=== PATIENT | male | born 1970 | race Caucasian/White ===

== ENCOUNTER → 2018-07-24 11:39 | Outpatient (CLI) | payer SELFPAY ==
--- NOTE | 2018-07-24 11:43 | RAD_ITS ---
STUDY: X-RAY CHEST REASON FOR EXAM: Male, 48 years old. Cough and congestion. TECHNIQUE: Front frontal and lateral projections of the chest. COMPARISON: Frontal projection of the chest as part of a rib series dated November 19, 2016. FINDINGS: There is a new, prominent region of alveolar opacification with the in within the left infrahilar location involving the superior segment left lower lobe. There is no associated effusion. There is no pneumothorax. Normal size heart. Normal mediastinum and gutierrez. Normal visualized pulmonary arteries. Normal visualized aortic arch and descending thoracic aorta. There is no evident acute osseous abnormality. There is no demonstrated abnormality of the visualized soft tissue structures of the upper abdomen. RAD/Chest PA and Lateral IMPRESSION: Superior segment left lower lobe consolidation probably representing pneumonia. There is no evident parapneumonic effusion. No pneumothorax. Stable and unremarkable appearing cardiomediastinal silhouette. Recommendation: I recommend radiographic follow-up until complete clearing to exclude underlying pathology to include neoplasm. Electronically Signed: Samson Pinto MD at 12:24 EDT , Service support ,
== END ==
PROVIDERS: Referring Provider Physician Assistant; Visit Provider Physician Assistant
DX: R05 Cough (principal)
CPT/HCPCS: 71046

== ENCOUNTER 2018-07-31 18:42 | Observation (INO) | payer OTHER, SELFPAY ==
[2018-07-31 18:43] VITALS: BP 111/88; PULSE 127; RESP 18; TEMP 36.6; O2SAT 93; BMI 26.4
--- NOTE | 2018-07-31 19:53 | US_ITS ---
STUDY: VENOUS DOPPLER ULTRASOUND - LEFT LOWER EXTREMITY REASON FOR EXAM: Male, 48 years old. Palpable cord in leg. TECHNIQUE: Ultrasound evaluation of the deep vein system to include renteria-scale imaging and compression was performed. Renteria-scale imaging and Doppler sonographic evaluation, including duplex spectral analysis and qualitative color flow sonography, was performed. COMPARISON: None. FINDINGS: Common Femoral Vein: Normal compression, spontaneity and augmentation. Normal color Doppler. Common Femoral Vein/Greater Saphenous Junction: Normal compression, spontaneity and augmentation. Normal color Doppler. Femoral Proximal: Normal compression, spontaneity and augmentation. Normal color Doppler. Femoral Middle: Normal compression, spontaneity and augmentation. Normal color Doppler. Femoral Distal: Normal compression, spontaneity and augmentation. Normal color Doppler. Popliteal Vein: Normal compression, spontaneity and augmentation. Normal color Doppler. Posterior Tibial Vein: Normal compression, spontaneity and augmentation. Normal color Doppler. Peroneal Vein: Normal compression, spontaneity and augmentation. Normal color Doppler. There is occlusive clot in the left greater saphenous vein extending from the mid thigh to the upper calf. US/Venous Duplex Imag/Limited/Uni IMPRESSION: Occlusive superficial thrombus in the left greater saphenous vein extending from the mid thigh to the upper calf. No evidence of deep venous thrombosis in the left lower extremity. Electronically Signed: Phil Anne Marie, at 20:54 EDT Tel , Service support ,
[2018-07-31 20:57] VITALS: RESP 16
--- NOTE | 2018-07-31 21:37 | CT_ITS ---
STUDY: CTA CHEST REASON FOR EXAM: Male, 48 years old. Superficial thrombus on venous Doppler October. Shortness of breath. Cough. RADIATION DOSAGE (If Supplied By Facility): CTDIvol = ( 12.82 ) mGy, DLP = ( 443.04 ) mGycm TECHNIQUE: The examination was performed with the intravenous administration of 75ml IV Isovue 370. Post-processing of the angiographic images was performed, with multiplanar reformation and 3D reconstruction. Individualized dose optimization techniques were used for this CT. COMPARISON: None. FINDINGS: There is consolidation within the left lower lobe. There is a subpleural 6.3 mm nodule within the right lower lobe. Normal enhancement of the main pulmonary artery and right and left pulmonary arteries. Normal enhancement of the bilateral peripheral pulmonary arteries. There is no demonstrated pulmonary embolism. Normal thoracic aorta and visualized great vessels. There is no demonstrated aortic dissection. There are calcifications of the coronary arteries. Normal mediastinum. Normal hilar regions. Normal visualized trachea and bronchi. Normal osseous structures. The limited images of the upper abdomen demonstrate too small to characterize scattered low-attenuation foci throughout the liver which may reflect underlying hemangiomas and/or cysts. CT/CTA Chest W/WO Contrast IMPRESSION: No demonstrated pulmonary embolism or arterial dissection. Left lower lobe pneumonia. Electronically Signed: Nydia Nj MD at 23:12 EDT Tel , Service support ,
--- NOTE | 2018-07-31 21:37 | EKG12_ITS ---
Test Reason : SOB Blood Pressure : / mmHG Vent. Rate : 091 BPM Atrial Rate : 091 BPM P-R Int : 146 ms QRS Dur : 090 ms QT Int : 364 ms P-R-T Axes : 068 047 058 degrees QTc Int : 447 ms Normal sinus rhythm Normal ECG Confirmed by HOLLIS MARINO, DOM ([id number]), science editor SHANNON LOPEZ ([id number]) on 08/03/2018 9:21:32 AM Referred By: Phil Webster Confirmed By:DOM SHAFER MD
--- NOTE | 2018-07-31 21:39 | ED.VISSUMM ---
- ER Visit Summary Date of Service: 07/31/18 Chief Complaint: Shortness of breath and leg swelling History of Present Illness: The patient is a 48 M who presents for 1 week of shortness of breath and cough and now swelling in the left lower leg. Patient states he was diagnosed with pneumonia 8 days ago at the urgent care. He had a chest x-ray performed. He was started on Levaquin and is on day 8 of 10. He is still having shortness of breath and a cough, also night sweats. He denies fever, chest pain, abdominal pain, nausea or vomiting. He noted since yesterday he is having hard swelling along the left inner thigh and down into the calf. He has no history of blood clots in the lungs or legs. Is not on any blood thinners. Denies any medical history. Is not a smoker. No recent travel or surgery. Physical Examination: Vital signs: afebrile, hemodynamically stable, no hypoxia on room air General: well nourished, well developed, in no distress Skin: warm, dry, no rash, no pallor HEENT: normocephalic and atraumatic; PERRL, EOMI, moist mucous membranes Cardiovascular: regular rate and rhythm without murmurs, no peripheral edema, 2+ pulses all distal extremities Respiratory: No increased work of breathing, lungs have rales in the left lower field Abdominal: Abdomen is soft, nontender with normoactive bowel sounds, no guarding or rebound, no masses MSK: Moves all extremities, no deformities, normal strength, palpable cord along the medial thigh from mid thigh down to the proximal lower leg, overlying erythema, no tenderness in the calf Neuro: Awake and alert, oriented ?4. No facial droop, sensation and motor function intact and symmetric Test Results: Abnormal Lab Results 07/31/18 07/31/18 07/31/18 21:50 21:50 21:50 WBC 7.8 RBC 4.26 L Hgb 12.6 L Hct 37.0 L MCV 86.9 MCH 29.6 MCHC 34.1 RDW 12.1 RDW Differential 38.1 Plt Count 337 MPV 8.7 Immature Gran % (Auto) 1.000 H Neut % (Auto) 70.9 H Lymph % (Auto) 16.4 L [place] % (Auto) 9.6 Eos % (Auto) 1.5 Baso % (Auto) 0.6 Absolute Neuts (auto) 5.5 Absolute Lymphs (auto) 1.28 Total Counted Not Reportable PT 15.2 H INR 1.2 APTT 47.3 H Sodium 136 Potassium 4.1 Chloride 102 Carbon Dioxide 32.0 Anion Gap 2 L BUN 19 H Creatinine 1.04 Estim Creat Clear Calc 98.17 Est GFR (MDRD) Af Amer 98 Est GFR (MDRD) Non-Af 81 BUN/Creatinine Ratio 18.3 Glucose 102 Calcium 8.3 L Troponin I < 0.015 Clinical Impression(s) from Imaging Studies Venous Duplex 07/31/18 19:53 IMPRESSION: Occlusive superficial thrombus in the left greater saphenous vein extending from the mid thigh to the upper calf. No evidence of deep venous thrombosis in the left lower extremity. Electronically Signed: Phil Kenney, at 20:54 EDT Tel , Service support , Chest CTA 07/31/18 21:37 IMPRESSION: No demonstrated pulmonary embolism or arterial dissection. Left lower lobe pneumonia. Electronically Signed: Nydia Nj MD at 23:12 EDT Tel , Service support , Medications Given Azithromycin 500 mg/ Dextrose 255 mls @ 250 mls/hr IV X1 ONE Stop: 08/01/18 00:20 Discontinued Medications Sodium Chloride () 1,000 mls @ 999 mls/hr IV .Q1H1M ONE Stop: 07/31/18 22:37 Last Admin: 07/31/18 21:50 Dose: 999 mls/hr Ceftriaxone Sodium (Rocephin) 1 gm in 50 mls @ 100 mls/hr IV X1 ONE Stop: 07/31/18 23:48 Last Admin: 07/31/18 23:59 Dose: 100 mls/hr Rivaroxaban (Xarelto) 10 mg PO X1 ONE Stop: 07/31/18 23:43 Last Admin: 08/01/18 00:00 Dose: 10 mg Emergency Department Course and Treatment: Patient presents with 1 week of shortness of breath and cough, diagnosed with pneumonia but not improving on 8 days of Levaquin now. Patient's lung exam is concerning for right lower lobe rales. Because of the prolonged shortness of breath and now the superficial blood clot in the left greater saphenous vein, as well as patient being tachycardic at initial presentation, CTA was performed to evaluate for any possible pulmonary embolism. It did show the left lower lobe infiltrate and no pulmonary embolism. EKG showed sinus rhythm with no ischemic changes. Patient has a negative troponin, and unremarkable labs otherwise. Because patient has a SVT in the left lower extremity that is greater than 5 cm, per guidelines this warrants treatment with anticoagulation at prophylaxis dose. Guidelines recommend one option as Xarelto 10 mg daily for 45 days. Patient was started on Xarelto 10 mg. He was started on IV azithromycin and Rocephin due to failed outpatient treatment of community-acquired pneumonia, remaining symptomatic after 8 days on Levaquin. Patient was discussed with Dr. Rodriguez and admitted as observation status for further management of community acquired pneumonia with failed outpatient treatment and superficial venous thromboembolism in the left lower extremity. Treatment Plan: [] Disposition: [] Impression: Community acquired pneumonia, failed outpatient treatment, left superficial venous thromboembolism in the greater saphenous vein, greater than 5 cm This note was generated with [employer] dictation software. It may contain incorrect words, spelling, and punctuation that were not noted in review of the chart prior to signing ED Disposition - Plan for ED Patient:
[2018-07-31] MEDS: 0.9% Normal Saline 1,000 ML 999 ML IV (21:50)
[2018-07-31 21:57] LABS: Absolute Lymphocyte Count 1.28 X10^3/ul (0.83-4.51); Absolute Neutrophil Count 5.5 X10^3/uL (2.0-7.7); Basophil# 0.05 X10^3/uL; Basophil% 0.6 % (0-1); Eosinophil# 0.12 X10^3/uL; Eosinophils% 1.5 % (0-5); Hemoglobin 12.6 g/dl (13.0-16.5); Lymphocyte # 1.28 X10^3/ul (4.0); Lymphocyte % 16.4 % (19-41); Mean Corp Hgb Conc 34.1 g/gl (32-36); Mean Corpuscular Hgb 29.6 pg (27.0-32.0); Mean Corpuscular Volume 86.9 fL (80-94); Mean Platelet Vol. 8.7 fl (6.2-12.0); Monocyte# 0.75 X10^3/uL; Monocyte% 9.6 % (0-10); Neutrophil # 5.52 X10^3/uL (2.7-7.7); Neutrophil % 70.9 % (47-70); Platelet Count 337 K/mm3 (150-450); RBC Distribution Width CV 12.1 % (11.6-14.6); RBC Distribution Width SD 38.1 fl (35.1-43.9); Red Blood Count 4.26 M/mm3 (4.6-6.2); White Blood Count 7.8 K/mm3 (4.4-11.0)
[2018-07-31 22:01] LABS: POSITIVE COUNT NO; POSITIVE DIFFERENTIAL NO; POSITIVE MORPHOLOGY NO
[2018-07-31 22:16] LABS: Anion Gap 2 (5-15); BUN 19 mg/dL (7-18); BUN/Creat Ratio 18.3 RATIO (10-20); Calcium,Total 8.3 mg/dL (8.5-10.1); Chloride 102 mmol/L (98-107); Creatinine, Serum 1.04 mg/dL (0.70-1.30); EST Glomerular Filtration Rate 81 mL/min (>60); Est Glom Filt Rate - Afr Amer 98 mL/min (>60); Estimated Creatinine Clearance 98.17 ml/min; Glucose 102 mg/dL (74-106); Potassium 4.1 mmol/L (3.5-5.1); Sodium Level 136 mmol/L (136-145)
[2018-07-31 22:19] VITALS: BP 126/84; PULSE 84; RESP 16
[2018-07-31 23:29] LABS: International Normalized Ratio 1.2; Prothrombin Time (Protime)PT. 15.2 SECONDS (11.7-14.9)
[2018-07-31 23:30] LABS: Partial Thromboplast Time 47.3 Seconds (24.1-36.2)
--- NOTE | 2018-07-31 23:39 | HP.PCM_ITS ---
Problem List (1) Community acquired pneumonia Status: Acute (2) Superficial vein thrombosis Status: Acute History of Present Illness Date of Admission: 07/31/18 Chief Complaint: induration of left inner thigh The patient is a 48 year old M with a history of varicose veins who presented primarily because of induration and redness of his left inner thigh. Associated with the symptoms is soreness of his left inner thigh. Also, patient reports that he was diagnosed with a pneumonia and has been on Levaquin for 8 days but has not fully recovered from his symptoms. He reported that about 2 weeks his symptoms of pneumonia started. He reports these symptoms as a productive cough with greenish sputum; left-sided chest pain with taking a deep breath; and night sweats. Reportedly although his cough has improved it has not completely resolved. He report that his appetite has come back after starting outpatient pneumonia treatment. The emergency department emergency department doctor was concerned about a PE for which reason CTPA was done. CTPA was negative for clots but this showed left lower lobe pneumonia. Also venous Doppler showed occlusive superficial thrombus in the left greater saphenous vein Past Medical History Medical History: Medical History (Last Reviewed 08/01/18 @ 00:21 by Helio Rodriguez MD) Hemorrhoids K64.9 Knee pain M25.569 Allergies No Known Allergies Allergy (Verified 07/31/18 18:47) Home Medications: Ambulatory Orders Medication Instructions Recorded levofloxacin 750 mg tablet 750 mg PO DAILY #10 tab 07/24/18 Surgical History: herniorrhaphy, tonsillectomy Lives: Alone Smoking Status: Former smoker Alcohol: Occasional - *Family History Maternal History Items: Heart Disease Paternal History Items: - - Denies any paternal medical Review of Systems Constitutional: Denies: Chills, Fever, Weight Change HEENT: Denies: Head Aches, Sinus Congestion, Sinus Drainage Cardiovascular: Reports: Chest Pain - With taking a deep breath. Denies: Palpitations Respiratory: Reports: Cough, Sputum production. Denies: Shortness of breath at rest Gastrointestinal: Denies: Abdominal Pain, Nausea, Vomiting Genitourinary: Denies: Dysuria Musculoskeletal: Reports: - - Soreness of left side.. Denies: Joint Pain, Joint Tenderness Skin: Denies: Rash, Wounds Neurological: Denies: Numbness, Tingling, Focal weakness Psychiatric: Denies: Anxiety, Depression, Homicidal Ideations, Suicidal Daphney ations Hematologic/ Lymphatic: Denies: Easy Bruising, Easy Bleeding VTE Information - Inpt Only VTE Present on Admission: Yes - Superficial clot of the left saphenous vein VTE Mechan Device Prophylaxis: None VTE Pharm Prophylaxis ordered?: No Reason prophylaxis not ordered:: Treatment Not Indicated - Started on Xarelto for superficial clot of the left saphenous vein. Patient Problems: Active and Suspected Problems (Last Reviewed 08/01/18 @ 00:21 by Helio Rodriguez MD) Community acquired pneumonia (Acute) Superficial vein thrombosis (Acute) - Physical Exam General: Alert, Oriented x3, Cooperative HEENT: Atraumatic, PERRLA, EOMI, Normocephalic Neck: Supple, No JVD, Negative Carotid Bruits Lungs: Rales - LEFT POSTERIOR LUNGS Cardiovascular: Regular Rhythm, Normal S1, Normal S2, No murmurs, Tachycardic Abdomen: Bowel Sounds Present, Soft, Non Tender Extremities: No edema, Capillary Refill Less than 3 Seconds Skin: No breakdown, - - erythema and induration of left inner thigh. Musculoskeletal: No Tenderness to Palpation of Joints or Extremities Neurological: Neuro grossly intact Psych/Mental Status: Normal Affect, Appropriate Vital Signs Temp Pulse Resp BP Pulse Ox 97.9 F 84 16 126/84 H 93 07/31/18 18:43 07/31/18 22:19 07/31/18 22:19 07/31/18 22:19 07/31/18 18:43 Oxygen Delivery Method Room Air Weight: 90.718 kg Body Mass Index (BMI) 26.4 Laboratory Tests Past 24 Hrs 07/31/18 07/31/18 07/31/18 21:50 21:50 21:50 WBC 7.8 RBC 4.26 L Hgb 12.6 L Hct 37.0 L MCV 86.9 MCH 29.6 MCHC 34.1 RDW 12.1 RDW Differential 38.1 Plt Count 337 MPV 8.7 Immature Gran % (Auto) 1.000 H Neut % (Auto) 70.9 H Lymph % (Auto) 16.4 L [place] % (Auto) 9.6 Eos % (Auto) 1.5 Baso % (Auto) 0.6 Absolute Neuts (auto) 5.5 Absolute Lymphs (auto) 1.28 Total Counted Not Reportable PT Pending INR Pending APTT Pending Sodium 136 Potassium 4.1 Chloride 102 Carbon Dioxide 32.0 Anion Gap 2 L BUN 19 H Creatinine 1.04 Estim Creat Clear Calc 98.17 Est GFR (MDRD) Af Amer 98 Est GFR (MDRD) Non-Af 81 BUN/Creatinine Ratio 18.3 Glucose 102 Calcium 8.3 L Troponin I < 0.015 Assessment/Plan All Active Problems (Last Reviewed 08/01/18 @ 00:21 by Helio Rodriguez MD) Community acquired pneumonia (Acute) Superficial vein thrombosis (Acute) The patient is a 48 year old M with a history of varicose veins who presented primarily because of induration and redness of his left inner thigh; and also made mention of outpatient treatment of pneumonia without complete resolution; and was found to have radiographic evidence of occlusive superficial left greater saphenous vein thrombosis and left lower lobe consolidation consistent with Superficial venous thrombosis and a pneumonia. Community Acquired pneumonia Patient was noted to have tachycardia. CTPA showed left lower lobe consolidation. CTPA was independently reviewed. I agree with radiologist interpretation. Patient received Levaquin 8 days outpatient and was started on azithromycin and ceftriaxone in the emergency department. Anticipate patient can be discharged home on 08/01/2018 on oral medication. No Further antibiotics outpatient ordered at this time. Patient felt that he would not need any cough medicine so cough medication were not prescribed. Superficial Venous Thrombosis Patient with occlusive superficial thrombus in the left greater saphenous vein extending from the mid thigh to the upper calf. Since affected vein is more than 5 cm per recommendation patient was started on oral anticoagulation,Xarelto, from the emergency department. Per recommendation patient can continue Xarelto 10 mg daily for a total of 45 days. Consider continuing Xarelto. DVT prophylaxis Not indicated since patient has been started on Xarelto for SVT. Code Visit OBSV E&M: 28696 Initial observation care L3
[2018-07-31] MEDS: Ceftriaxone 1 GM/50 ML BAG IV (23:59)
[2018-08-01] MEDS: Rivaroxaban 10 MG Tablet PO
[2018-08-01 00:01] VITALS: BP 136/91; PULSE 83; RESP 16
[2018-08-01 00:25] VITALS: BP 126/86; PULSE 88; RESP 16
[2018-08-01 00:43] VITALS: BMI 25.9; BMI 26.0
[2018-08-01 01:10] VITALS: BP 115/80; PULSE 82; RESP 18; TEMP 36.8; O2SAT 95
[2018-08-01 02:12] VITALS: O2SAT 95
[2018-08-01 07:10] VITALS: O2SAT 98
[2018-08-01 08:00] VITALS: BP 114/80; PULSE 83; RESP 16; TEMP 36.7; O2SAT 95
--- NOTE | 2018-08-01 10:16 | CASEMGMT ---
Addendum entered by Fifi Tellez 08/01/18 10:50: SW spoke with Polly. Per Polly pt is Muslim and is part of [facility] [employer] group. Original Note: Social Work Note Pt is listed as self-pay, pt is Muslim and Polly is seeing pt. Fifi Tellez TRAFFIC CLERK, FACILITY SECURITY OFFICER
--- NOTE | 2018-08-01 11:34 | DCINST_ITS ---
- Discharge Diagnoses Current Active Problems: Current Active and Chronic Problems (Last Reviewed 08/01/18 @ 00:21 by Helio Rodriguez MD) Community acquired pneumonia (Acute) Superficial vein thrombosis (Acute) You will use the following diet at home:: No restrictions Your food should be the consistency of: Regular Your liquids should be the consistency of: Regular/Thin Discharge Activity: Return to Normal Activity Call your doctor if your incision/area has: Increased Pain/ Swelling, Increased Redness Call your doctor if you observe: Fever of 101 or Higher Allergies/Adverse Reactions: Allergies No Known Allergies Allergy (Verified 07/31/18 18:47) Medications to take at Discharge levofloxacin 750 mg tablet 750 mg PO DAILY #10 tab 07/24/18 Acetaminophen [Tylenol Tablet] 650 mg PO Q6H PRN PRN tablet 08/01/18 Rivaroxaban [Xarelto] 10 mg PO DAILY #44 tablet 08/01/18 The following prescriptions were given: Rivaroxaban [Xarelto] 10 mg PO DAILY #44 tablet Primary Care Physician: Sonali Roy MD [Primary Care Provider] - Within 2 Weeks Test Results: Test results from this visit will be discussed in further detail at your follow- up appointment, if applicable. Proposed Discharge Date: 08/01/18
--- NOTE | 2018-08-01 11:34 | PCM.DC.SUM ---
Discharge Date and Diagnosis - Problem List Patient Problems: Active and Suspected Problems (Last Reviewed 08/01/18 @ 00:21 by Helio Rodriguez MD) Community acquired pneumonia (Acute) Superficial vein thrombosis (Acute) Date of Admission: 07/31/18 Date of Discharge: 08/01/18 - Primary Discharge Diagnosis Active and Suspected Problems (Last Reviewed 08/01/18 @ 00:21 by Helio Rodriguez MD) Community acquired pneumonia (Acute) Superficial vein thrombosis (Acute) Hospital Course and Treatment Imaging Results: Clinical Impression(s) from Imaging Studies Venous Duplex 07/31/18 19:53 IMPRESSION: Occlusive superficial thrombus in the left greater saphenous vein extending from the mid thigh to the upper calf. No evidence of deep venous thrombosis in the left lower extremity. Electronically Signed: Phil Kenney, at 20:54 EDT Tel , Service support , Chest CTA 07/31/18 21:37 IMPRESSION: No demonstrated pulmonary embolism or arterial dissection. Left lower lobe pneumonia. Electronically Signed: Nydia Nj MD at 23:12 EDT Tel , Service support , Operations: None Procedures: None Summary of Care Provided: The patient is a 48 year old M with redness of the inner thigh. Patient was found to have a superior venous thrombophlebitis of the left greater saphenous vein extending from the mid thigh to upper calf. Given the size exceeded 5cm guidelines recommend rivaroxaban 10 mg for a total of 45 days. Patient had a CTA of the chest that did not show any pulmonary embolism but did show left lower lobe infiltrate. Previously, the patient was treated with levofloxacin for pneumonia patient was overall doing better. Is my feeling that is not a treatment failure but just not enough time to show resolution of the pneumonia. Patient states that he has 2 more doses of the Levaquin and I would recommend the patient just complete those antibiotics. No further imaging is necessary unless his condition worsens. [] Patient Problems: Active and Suspected Problems (Last Reviewed 08/01/18 @ 00:21 by Helio Rodriguez MD) Community acquired pneumonia (Acute) Superficial vein thrombosis (Acute) - Physical Exam General: Alert, No apparent distress HEENT: Atraumatic, Normocephalic Extremities: - - Palpable cord in the left medial thigh. No induration or erythema noted. Vital Signs Temp Pulse Resp BP Pulse Ox 36.7 C 83 16 114/80 95 08/01/18 08:00 08/01/18 08:00 08/01/18 08:00 08/01/18 08:00 08/01/18 08:00 Oxygen Delivery Method Room Air Weight: 89.4 kg Body Mass Index (BMI) 25.9 Intake and Output for Last 24 Hours 07/30/18 07/31/18 08/01/18 23:59 23:59 23:59 Intake Total 305 / 305 Balance 305 / 305 Laboratory Tests Past 24 Hrs 07/31/18 07/31/18 07/31/18 21:50 21:50 21:50 WBC 7.8 RBC 4.26 L Hgb 12.6 L Hct 37.0 L MCV 86.9 MCH 29.6 MCHC 34.1 RDW 12.1 RDW Differential 38.1 Plt Count 337 MPV 8.7 Immature Gran % (Auto) 1.000 H Neut % (Auto) 70.9 H Lymph % (Auto) 16.4 L [place] % (Auto) 9.6 Eos % (Auto) 1.5 Baso % (Auto) 0.6 Absolute Neuts (auto) 5.5 Absolute Lymphs (auto) 1.28 Total Counted Not Reportable PT 15.2 H INR 1.2 APTT 47.3 H Sodium 136 Potassium 4.1 Chloride 102 Carbon Dioxide 32.0 Anion Gap 2 L BUN 19 H Creatinine 1.04 Estim Creat Clear Calc 98.17 Est GFR (MDRD) Af Amer 98 Est GFR (MDRD) Non-Af 81 BUN/Creatinine Ratio 18.3 Glucose 102 Calcium 8.3 L Troponin I < 0.015 Discharge Diet: No Restrictions Discharge Activity: Return to Normal Activity Call your doctor if your incision/area has: Increased Pain/ Swelling, Increased Redness Call your doctor if you observe: Fever of 101 or Higher Home Medications: Medications to take at Discharge levofloxacin 750 mg tablet 750 mg PO DAILY #10 tab 07/24/18 Acetaminophen [Tylenol Tablet] 650 mg PO Q6H PRN PRN tablet 08/01/18 Rivaroxaban [Xarelto] 10 mg PO DAILY #44 tablet 08/01/18 Following Prescrptions Were Given to Patient: Rivaroxaban [Xarelto] 10 mg PO DAILY #44 tablet Primary Care Physician: Sonali Roy MD [Primary Care Provider] - Within 2 Weeks Disposition: Home Minutes spent on discharge:: 28 Patient Condition:: Good Medical Necessity - Tobacco Use Smoking Status: Former smoker Meaningful Use Info Meaningful Use Diagnoses (Choose all that apply): None applicable Code Visit OBSV E&M: 75065 Observation care discharge
--- NOTE | 2018-08-01 11:37 | DS.PCM_ITS ---
Discharge Date and Diagnosis - Problem List Patient Problems: Active and Suspected Problems (Last Reviewed 08/01/18 @ 00:21 by Helio Rodriguez MD) Community acquired pneumonia (Acute) Superficial vein thrombosis (Acute) Date of Admission: 07/31/18 Date of Discharge: 08/01/18 - Primary Discharge Diagnosis Active and Suspected Problems (Last Reviewed 08/01/18 @ 00:21 by Helio Rodriguez MD) Community acquired pneumonia (Acute) Superficial vein thrombosis (Acute) Hospital Course and Treatment Imaging Results: Clinical Impression(s) from Imaging Studies Venous Duplex 07/31/18 19:53 IMPRESSION: Occlusive superficial thrombus in the left greater saphenous vein extending from the mid thigh to the upper calf. No evidence of deep venous thrombosis in the left lower extremity. Electronically Signed: Phil Kenney, at 20:54 EDT Tel , Service support , Chest CTA 07/31/18 21:37 IMPRESSION: No demonstrated pulmonary embolism or arterial dissection. Left lower lobe pneumonia. Electronically Signed: Nydia Nj MD at 23:12 EDT Tel , Service support , Operations: None Procedures: None Summary of Care Provided: The patient is a 48 year old M with redness of the inner thigh. Patient was found to have a superior venous thrombophlebitis of the left greater saphenous vein extending from the mid thigh to upper calf. Given the size exceeded 5cm guidelines recommend rivaroxaban 10 mg for a total of 45 days. Patient had a CTA of the chest that did not show any pulmonary embolism but did show left lower lobe infiltrate. Previously, the patient was treated with levofloxacin for pneumonia patient was overall doing better. Is my feeling that is not a treatment failure but just not enough time to show resolution of the pneumonia. Patient states that he has 2 more doses of the Levaquin and I would recommend the patient just complete those antibiotics. No further imaging is necessary unless his condition worsens. [] Patient Problems: Active and Suspected Problems (Last Reviewed 08/01/18 @ 00:21 by Helio Rodriguez MD) Community acquired pneumonia (Acute) Superficial vein thrombosis (Acute) - Physical Exam General: Alert, No apparent distress HEENT: Atraumatic, Normocephalic Extremities: - - Palpable cord in the left medial thigh. No induration or erythema noted. Vital Signs Temp Pulse Resp BP Pulse Ox 36.7 C 83 16 114/80 95 08/01/18 08:00 08/01/18 08:00 08/01/18 08:00 08/01/18 08:00 08/01/18 08:00 Oxygen Delivery Method Room Air Weight: 89.4 kg Body Mass Index (BMI) 25.9 Intake and Output for Last 24 Hours 07/30/18 07/31/18 08/01/18 23:59 23:59 23:59 Intake Total 305 / 305 Balance 305 / 305 Laboratory Tests Past 24 Hrs 07/31/18 07/31/18 07/31/18 21:50 21:50 21:50 WBC 7.8 RBC 4.26 L Hgb 12.6 L Hct 37.0 L MCV 86.9 MCH 29.6 MCHC 34.1 RDW 12.1 RDW Differential 38.1 Plt Count 337 MPV 8.7 Immature Gran % (Auto) 1.000 H Neut % (Auto) 70.9 H Lymph % (Auto) 16.4 L [place] % (Auto) 9.6 Eos % (Auto) 1.5 Baso % (Auto) 0.6 Absolute Neuts (auto) 5.5 Absolute Lymphs (auto) 1.28 Total Counted Not Reportable PT 15.2 H INR 1.2 APTT 47.3 H Sodium 136 Potassium 4.1 Chloride 102 Carbon Dioxide 32.0 Anion Gap 2 L BUN 19 H Creatinine 1.04 Estim Creat Clear Calc 98.17 Est GFR (MDRD) Af Amer 98 Est GFR (MDRD) Non-Af 81 BUN/Creatinine Ratio 18.3 Glucose 102 Calcium 8.3 L Troponin I < 0.015 Discharge Diet: No Restrictions Discharge Activity: Return to Normal Activity Call your doctor if your incision/area has: Increased Pain/ Swelling, Increased Redness Call your doctor if you observe: Fever of 101 or Higher Home Medications: Medications to take at Discharge levofloxacin 750 mg tablet 750 mg PO DAILY #10 tab 07/24/18 Acetaminophen [Tylenol Tablet] 650 mg PO Q6H PRN PRN tablet 08/01/18 Rivaroxaban [Xarelto] 10 mg PO DAILY #44 tablet 08/01/18 Following Prescrptions Were Given to Patient: Rivaroxaban [Xarelto] 10 mg PO DAILY #44 tablet Primary Care Physician: Sonali Roy MD [Primary Care Provider] - Within 2 Weeks Disposition: Home Minutes spent on discharge:: 28 Patient Condition:: Good Medical Necessity - Tobacco Use Smoking Status: Former smoker Meaningful Use Info Meaningful Use Diagnoses (Choose all that apply): None applicable Code Visit OBSV E&M: 43044 Observation care discharge
--- NOTE | 2018-08-01 12:47 | CASEMGMT ---
MÓNICA ALEXIS Note: Call received from nursing re: cost of Xarelto being ~$575.00. Pt is not eligible for savings card due to 10 mg dosage being exempt from saving program. MÓNICA ALEXIS called to pharmacy to see if discount options are available- no cost savings per [facility]. MÓNICA ALEXIS intro role of CM to patient in room. Reviewed cost of medication. Pt states he does not know if medication will be reimbursed by [employer], but he can afford to pay. Pt requesting to be dc'd, will corn picker medication in pharmacy. Nurse rodríguez. Mehran SCHMIDTN RN ACM
== END 2018-08-01 12:42 | disposition home or self-care (01) ==
LOC: ED 21:54 → MS3 08-01 00:19
PROVIDERS: Admitting Provider Hospitalist; Emergency Provider Emergency Medicine; Family Provider Internal Medicine; PCP Internal Medicine
DX: J18.9 Pneumonia, unspecified organism (principal); I82.812 Embolism and thrombosis of superficial veins of left lower extremity; Z87.891 Personal history of nicotine dependence
CPT/HCPCS: 36415; 71275; 80048; 84484; 85025; 85610; 85730; 87040; 93005; 93971; 96361; 96365; 96367; 99218; 99285; J7030; J7050; Q9967; A4216; G0378

== ENCOUNTER 2020-03-08 13:45 | Emergency (ER) | payer OTHER, SELFPAY ==
[2018-09-27 14:51] VITALS: BMI 25.9
[2020-03-08 13:45] VITALS: BP 151/77; PULSE 90; RESP 16; TEMP 36.4; O2SAT 99; BMI 25.4
--- NOTE | 2020-03-08 14:20 | ED.DEP ---
ED Disposition - Plan for ED Patient: Instructions: Understanding Deep Vein Thrombosis Referrals: Sonali Roy MD [Primary Care Provider] -
--- NOTE | 2020-03-08 14:23 | ED.VISSUMM ---
- ER Visit Summary Date of Service: 03/08/20 Chief Complaint: Left leg pain History of Present Illness: The patient is a 49 M presenting with left leg pain. He states this started on Tuesday. He denies injury. He has a history of previous DVT in his left leg. This occurred approximately 1.5 years ago. He is no longer on anticoagulants. He states this feels similar to his previous DVT. He denies chest pain or shortness of breath. Denies other complaints. Physical Examination: Vitals are stable. Patient is afebrile. Alert no acute distress. HEENT exam is unremarkable. Neck is supple. Lungs are clear and equal bilaterally. Heart is regular rate and rhythm. Extremities left medial thigh tenderness. Normal distal pulses Skin is warm and dry. No focal neurologic deficit. Remainder of exam is unremarkable. Emergency Department Course and Treatment: Ultrasound is not available at this time of day. He is given order for outpatient venous Doppler. He understands and will return tomorrow for venous Doppler. He is given Lovenox subcutaneously. Advised return to ED for worsening complaints. Disposition: Discharge home Impression: Left leg pain This note was generated with [employer] dictation software. It may contain incorrect words, spelling, and punctuation that were not noted in review of the chart prior to signing ED Disposition - Plan for ED Patient: Instructions: Understanding Deep Vein Thrombosis Referrals: Sonali Roy MD [Primary Care Provider] -
[2020-03-08] MEDS: Enoxaparin 150 MG/ML Syringe 130 MG SC (15:07)
== END 2020-03-08 15:11 | disposition home or self-care (01) ==
PROVIDERS: Emergency Provider Emergency Medicine; PCP Internal Medicine
DX: M79.605 Pain in left leg (principal); Z86.718 Personal history of other venous thrombosis and embolism
CPT/HCPCS: 96372; 99282

== ENCOUNTER 2022-10-23 09:39 | Emergency (ER) | payer OTHER, SELFPAY ==
[2022-10-23 09:41] VITALS: BP 162/81; PULSE 81; RESP 16; TEMP 36.6; O2SAT 100; BMI 25.4
--- NOTE | 2022-10-23 10:00 | CT_ITS ---
INDICATION: FB sens. No issues swallowing. EXAMINATION: CT NECK WITH CONTRAST - CT Soft Tissue Neck W/ Contrast Injection TECHNIQUE: Helically acquired images were obtained of the neck following IV contrast. A radiation dose optimization technique was used for this scan. IV Contrast dosage and agent: 75 cc of Isovue 300. RADIATION DOSAGE (If Supplied By Facility): CTDIvol = ( 17.11 ) mGy, DLP = ( 534.44 ) mGycm COMPARISON: No prior examinations are available for comparison. FINDINGS: NASOPHARYNX: Unremarkable. SUPRAHYOID NECK: Unremarkable oropharynx, oral cavity, parapharyngeal space, and retropharyngeal space. INFRAHYOID NECK: Unremarkable larynx, hypopharynx, and supraglottis. THYROID: No focal lesions. SALIVARY GLANDS: Unremarkable. LYMPH NODES: No cervical or supraclavicular lymphadenopathy. VASCULAR STRUCTURES: Atherosclerotic calcifications of the left common carotid artery bulb. VISUALIZED PORTIONS OF THE ORBITS, PARANASAL SINUSES, MASTOID AIR CELLS AND SKULL BASE: [Mucosal thickening of the maxillary sinuses worse on the left side. BONES: Narrowing of C3-C4 disc space with degenerative spurs. THORACIC INLET: Clear lung apices. CT/Soft Tissue Neck WITH Contrast IMPRESSION: 1. No evidence of foreign body on this examination. 2. Unremarkable airway. 3. Mild sinus disease. Electronically Signed: Bay Coronado MD at 10:51 EDT ,
--- NOTE | 2022-10-23 10:01 | EDS_ITS ---
HPI History of Present Illness Chief Complaint: Foreign Body Informant: patient Narrative Narrative: Patient with with sensation of a lump in his throat is more to the left and down toward the manubrium. He states that it started around 2 months ago, he is swallowing some water and coughed a little briefly and that is when it started. It is a pressure sensation. It is there constantly, there are no modifying factors. He has no issues swallowing, it is nonpleuritic, and it does not change when he turns his head. It is more prominent in the past 3 to 4 days so he presents to have it checked out for the first time. Never had this before. He is healthy and takes no medications. No recent surgeries or hospitalizations. [facility] Medical History (Updated 10/23/22 @ 11:[address] Maciel Nichols MD) Hemorrhoids Knee pain Pneumonia Home Medications NK 09/27/18 [History Last Taken Unknown] Allergy/AdvReac Type Severity Reaction Status Date / Time No Known Allergies Allergy Verified 10/23/22 09:43 Family History Mother Skin cancer Surgical History (Updated 10/23/22 @ 10:[address] Maciel Nichols MD) History of herniorrhaphy History of tonsillectomy Social History Smoking Status: Former smoker Tobacco: How many years used: 15 how long ago did patient quit smokin04/04/1999 alcohol intake: never substance use type: does not use what type of physical activity do you participate in: bicycling frequency: 1-2 times per week ROS ROS ED Constitutional Constitutional ED: Denies chills or fever(s) Eyes Eyes: Denies change in vision or diplopia ENT ENT ED: Reports as per HPI; Denies rhinorrhea Cardiovascular Cardiovascular: Denies chest pain or palpitations Respiratory/Chest Respiratory/Chest: Denies cough or dyspnea Gastrointestinal Gastrointestinal: Denies abdominal pain, diarrhea, nausea or vomiting Genitourinary Genitourinary ED: Denies dysuria or hematuria Musculoskeletal Musculoskeletal: Denies back pain or neck pain Integumentary Denies abscess or rash Neurologic Neurologic: Denies headache(s), paresthesias or weakness Psychiatric Psychiatric: Denies anxiety or suicidal thoughts EXAM Physical Exam Const Vital Signs: 10/23/22 09:41 10/23/22 09:54 Temperature 98 F Temperature Source Temporal Pulse Rate 81 Respiratory Rate 16 Respiratory Effort Normal Non-Labored Respiratory Pattern Normal Blood Pressure 162/81 H Blood Pressure Mean 108 Pulse Ox 100 Oxygen Delivery Method Room Air Positive well nourished and well developed General Appearance ED: well developed and NAD HEENT Reports moist mucous membranes normocephalic and atraumatic Eyes PERRL and EOMs intact bilaterally Neck full ROM and supple Resp normal respiratory effort and clear to auscultation bilaterally Cardio regular rate, regular rhythm and no murmurs GI non-distended Back/Spine no CVA tenderness General Back: other FROM Extremity normal to inspection General Extremety ED: Negative for edema, pulses abnormal or tenderness General Extremity: Negative for edema or pulses abnormal Neuro oriented x3, CN's II-XII intact bilaterally and no sensory deficits noted Sensorium / Orientation: awake and alert Motor Exam: strength 5/5 throughout Skin no rashes or lesions noted and no wounds MDM MDM MDM Narrative Medical decision making narrative: Performed a CT after evaluating renal function, in order to evaluate for possible neck deep tissue mass or other potential etiology of the patient's symptoms. I reviewed the images and the report, I agree with it. Essentially negative for anything acute. Patient will be referred to ENT, he may need a scope, this does not sound like an EGD will be helpful here. Lab Data Attestation: I reviewed the patient's lab results. Labs: Laboratory Results - last 24 hr 10/23/22 10:10 WBC 4.1 L RBC 4.87 Hgb 15.0 Hct 43.4 MCV 89.1 MCH 30.8 MCHC 34.6 RDW Std Deviation 39.9 RDW Coeff of Gabriel 12.2 Plt Count 190 MPV 9.8 Immature Gran % (Auto) 0.500 Neut % (Auto) 57.2 Lymph % (Auto) 28.8 [place] % (Auto) 10.3 H Eos % (Auto) 2.5 Baso % (Auto) 0.7 Absolute Neuts (auto) 2.3 Absolute Lymphs (auto) 1.17 Nucleated RBC % 0 Sodium 139 Potassium 4.1 Chloride 106 Carbon Dioxide 29.0 Anion Gap 4 L BUN 17 Creatinine 0.96 Estim Creat Clear Calc 101.72 Est GFR (MDRD) Af Amer 106 Est GFR (MDRD) Non-Af 88 BUN/Creatinine Ratio 17.8 Glucose 108 H Calcium 8.8 Radiography Diagnostic Testing: Clinical Impression(s) from Imaging Studies Soft Tissue Neck CT 10/23/22 10:00 IMPRESSION: 1. No evidence of foreign body on this examination. 2. Unremarkable airway. 3. Mild sinus disease. Electronically Signed: Bay Coronado MD at 10:51 EDT , Discharge Plan Triage Chief Complaint: Foreign Body ED Provider: Maciel Nichols Dx/Rx/DC Orders Clinical Impression: Globus sensation Instructions: ED Symptoms With Uncertain Cause Prescriptions: No Action NK Primary Care Provider: Sonali Roy Referrals: Jonny Jay MD [Med Staff - Active Staff] - (Call for appointment) Sonali Roy MD [Primary Care Provider] - Disposition Disposition: Home, Self Care
[2022-10-23 10:20] LABS: Absolute Lymphocyte Count 1.17 X10^3/uL (0.83-4.51); Absolute Neutrophil Count 2.3 X10^3/uL (2.0-7.7); Basophil# 0.03 X10^3/uL; Basophil% 0.7 % (0-1); Eosinophils% 2.5 % (0-5); Hematocrit 43.4 % (40-54); Lymphocyte # 1.17 X10^3/ul (0.83-4.51); Lymphocyte % 28.8 % (19-41); Mean Corp Hgb Conc 34.6 g/dL (32-36); Mean Corpuscular Hgb 30.8 pg (27.0-32.0); Mean Corpuscular Volume 89.1 fL (80-94); Mean Platelet Vol. 9.8 fl (6.2-12.0); Monocyte# 0.42 X10^3/uL; Monocyte% 10.3 % (0-10); NRBC Flagged by Analyzer 0 % (0-5); Neutrophil # 2.32 X10^3/uL (2.7-7.7); Neutrophil % 57.2 % (47-70); Platelet Count 190 K/mm3 (150-450); RBC Distribution Width CV 12.2 % (11.6-14.6); RBC Distribution Width SD 39.9 fl (35.1-43.9); Red Blood Count 4.87 M/mm3 (4.6-6.2); White Blood Count 4.1 K/mm3 (4.4-11.0)
[2022-10-23 10:30] LABS: Anion Gap 4 (5-15); BUN 17 mg/dL (7-18); BUN/Creat Ratio 17.8 RATIO (10-20); Calcium,Total 8.8 mg/dL (8.5-10.1); Chloride 106 mmol/L (98-107); Creatinine, Serum 0.96 mg/dL (0.70-1.30); EST Glomerular Filtration Rate 88 mL/min (>60); Est Glom Filt Rate - Afr Amer 106 mL/min (>60); Estimated Creatinine Clearance 101.72 ml/min; Glucose 108 mg/dL (74-106); Potassium 4.1 mmol/L (3.5-5.1); Sodium Level 139 mmol/L (136-145)
== END 2022-10-23 14:05 | disposition home or self-care (01) ==
PROVIDERS: Emergency Provider Emergency Medicine; PCP Internal Medicine; Visit Provider Emergency Medicine
DX: F45.8 Other somatoform disorders (principal); Z87.891 Personal history of nicotine dependence
CPT/HCPCS: 70491; 80048; 85025; 99282; Q9967; A4216